=== PATIENT | male | born 1970 | race Caucasian/White ===

== ENCOUNTER 2017-11-05 13:35 | Inpatient (IN) | payer BC ==
[~2017-11-05] VITALS: Ht 182.9 cm; Wt 107.1 kg
[~2017-11-05 13:35] MED LIST: AMOXICILLIN875 MG PO
[2017-11-05 14:04] LABS: HEMATOCRIT 45.3 % (42.0-52.0); HEMOGLOBIN 15.4 g/dL (13.5-18.0); MEAN CELL VOLUME 89 fl (78-100); MEAN CORPUSCULAR HEMOGLOBIN 30 pg (27-31); MEAN CORPUSCULAR HGB CONC 34 g/dL (33-37); PLATELET COUNT 258 K/mm3 (130-400); RED CELL DISTRIBUTION WIDTH 13.9 % (11.5-14.5); WHITE BLOOD COUNT 18.7 K/mm3 (4.8-10.8)
[2017-11-05 14:20] LABS: ALBUMIN 4.4 g/dL (3.5-5.0); BUN/CREATININE RATIO 18.3 (6.0-26.0); CALCIUM 9.2 mg/dL (8.4-10.2); POTASSIUM 3.9 mmol/L (3.6-5.0); TOTAL BILIRUBIN 0.5 mg/dL (0.2-1.3); TOTAL PROTEIN 7.9 g/dL (6.3-8.2)
[2017-11-05 14:29] LABS: LYMPHOCYTE 13 % (20-51); MONOCYTE 3 % (3-10); NEUTROPHILS 84 % (42-75)
[2017-11-05 15:07] LABS: PH-URINE 5.5 (5.0 - 8.0); URINE APPEARANCE CLEAR; URINE BILIRUBIN NEGATIVE (NEGATIVE); URINE BLOOD NEGATIVE (NEGATIVE); URINE COLOR YELLOW; URINE GLUCOSE NEGATIVE (NEGATIVE); URINE KETONE 2+ (NEGATIVE); URINE LEUKOCYTE ESTERASE NEGATIVE (NEGATIVE); URINE NITRATE NEGATIVE (NEGATIVE); URINE PROTEIN(semi-quant) TRACE mg/dL (NEGATIVE); URINE UROBILINOGEN NORMAL (NORMAL); URINE WBC 0-1 /hpf (0-3)
[2017-11-05 15:08] LABS: URINE MUCUS PRESENT (NOT PRESENT)
[2017-11-05 15:56] VITALS: BP 132/82
--- NOTE | 2017-11-05 16:11 | NUR ---
Pt admitted to room 208. present. Pt and oriented to room and plan of care. Pt is alert and pleasant. Abd round and distended. Pt reports intermittent cramping. Hypoactive bowel sounds. Pt states he only had small BM this AM and loose BM yesterday. Pt agrees to plan of care and verbalizes understanding to alert staff when needing more pain medication.
[2017-11-05 16:12] VITALS: BP 132/82
[2017-11-05 18:31] VITALS: BP 134/69
--- NOTE | 2017-11-05 18:34 | NUR ---
Pt calls and reports that pain is getting worse and he didnt like the way the fentanyl made him feel. Pt also reports feeling flushed and temp was 100.3. Reported to Nella Razo PA-C. She in to assess pt and orders to follow.
--- NOTE | 2017-11-05 18:45 | NUR ---
Bedside shift report received from Juli MCFARLAND. Patient resting supine in bed with LR running at 200 ML/HR. Site patent. at bedside. States first dose of Morphine "took the edge off, but pain is still there". Wants to wait and see if pain decreases. Will call if he needs more. Waiting to go to CT, and awaiting labs.
--- NOTE | 2017-11-05 19:00 | NUR ---
To CT via W/C with tech.
--- NOTE | 2017-11-05 19:10 | NUR ---
Returns from CT. To BR ad-anabell. Voids 250 ML of clear yellow urine. Back to bed. Assessment completed. BS hypoactive all quads. States not passing gas. Tender with palpation across lower abdomen, especially LLQ. States would like more pain med now.
--- NOTE | 2017-11-05 19:24 | NUR ---
Morphine 2 Mg given SIVP. Patient states "its starting to work. Slightly drowsy. No nausea.
--- NOTE | 2017-11-05 19:45 | NUR ---
Lab in to draw lactate and CBC. Patient instructed to call for assist before getting up due to administration of Morphine. Verbalizes understanding. Instructed on need to keep track of I/O.
[2017-11-05 20:01] LABS: HEMATOCRIT 41.8 % (42.0-52.0); HEMOGLOBIN 14.2 g/dL (13.5-18.0); MEAN CELL VOLUME 90 fl (78-100); MEAN CORPUSCULAR HEMOGLOBIN 31 pg (27-31); MEAN CORPUSCULAR HGB CONC 34 g/dL (33-37); MEAN PLATELET VOLUME 10.1 fl (7.4-10.4); PLATELET COUNT 237 K/mm3 (130-400); RED BLOOD COUNT 4.66 M/mm3 (4.20-5.60); RED CELL DISTRIBUTION WIDTH 13.8 % (11.5-14.5)
--- NOTE | 2017-11-05 20:04 | NUR ---
Pain down to 2/10. Carolynn PA in to speak with patient and . Patient requests to have his temperature checked. 102.3 oral. Reported to Carolynn.
[2017-11-05 20:28] LABS: BAND 3 % (0-10); WHITE BLOOD COUNT 20.7 K/mm3 (4.8-10.8)
[2017-11-05 20:29] LABS: LYMPHOCYTE 3 % (20-51); MONOCYTE 1 % (3-10); NEUTROPHILS 93 % (42-75)
[2017-11-05 20:56] VITALS: BP 130/67
--- NOTE | 2017-11-05 21:01 | NUR ---
[facility] CONTACTED FOR TRANSFER TO [facility].
--- NOTE | 2017-11-05 21:13 | NUR ---
REPORT CALLED TO YUNIER AT [facility].
--- NOTE | 2017-11-05 21:19 | NUR ---
EMS here, report given. Patient calls and states pain has intensified to 9/10. Wrathing in pain. Order received for MSO4 2 MG IV now.
--- NOTE | 2017-11-05 21:23 | NUR ---
MSO4 2 MG given SIVP. EMS in to transport patient to cot. Family at bedside.
--- NOTE | 2017-11-05 21:30 | NUR ---
Patient leaves via EMS to [facility] RM [id number]. Pain slightly improved. Patient not wrathing or moaning out.
== END 2017-11-05 21:30 | disposition short-term general hospital (02) | DRG 390 ==
LOC: ED 13:35 → MED/SURG 15:45
PROVIDERS: Physician Assistant; ADMIT Physician Assistant
DX: K56.600 Partial intestinal obstruction, unspecified as to cause (principal)
CPT/HCPCS: J1885; J2270; J3010; J7030; J7120; Q9967

== ENCOUNTER → 2019-03-05 | Outpatient (CLI) | payer BC | LOC: RAD 14:02 | DX: S61.211A Laceration without foreign body of left index finger without damage to nail, initial encounter (principal) ==

== ENCOUNTER → 2020-06-25 | Outpatient (CLI) | payer BC ==
[2020-06-25 14:26] LABS: HEMATOCRIT 42.1 % (42.0-52.0); HEMOGLOBIN 13.9 g/dL (13.5-18.0); MEAN CELL VOLUME 90 fl (78-100); MEAN CORPUSCULAR HEMOGLOBIN 30 pg (27-31); MEAN CORPUSCULAR HGB CONC 33 g/dL (33-37); MEAN PLATELET VOLUME 9.8 fl (7.4-10.4); PLATELET COUNT 302 K/mm3 (130-400); WHITE BLOOD COUNT 13.4 K/mm3 (4.8-10.8)
[2020-06-25 14:33] LABS: URINE APPEARANCE CLEAR; URINE BILIRUBIN NEGATIVE (NEGATIVE); URINE BLOOD NEGATIVE (NEGATIVE); URINE COLOR YELLOW; URINE GLUCOSE NEGATIVE (NEGATIVE); URINE KETONE 2+ (NEGATIVE); URINE LEUKOCYTE ESTERASE NEGATIVE (NEGATIVE); URINE MUCUS PRESENT (NOT PRESENT); URINE NITRATE NEGATIVE (NEGATIVE); URINE PROTEIN(semi-quant) NEGATIVE (NEGATIVE); URINE UROBILINOGEN NORMAL (NORMAL)
[2020-06-25 15:16] LABS: ERYTHROCYTE SEDIMENTATION RATE 28 mm/hr (0-15)
[2020-06-25 15:26] LABS: BAND 1 % (0-10)
[2020-06-25 15:27] LABS: LYMPHOCYTE 17 % (20-51); MONOCYTE 9 % (3-10); NEUTROPHILS 71 % (42-75)
== END ==
LOC: RAD 13:55
PROVIDERS: Family Medicine
DX: K35.33 Acute appendicitis with perforation, localized peritonitis, and gangrene, with abscess (principal); Z98.890 Other specified postprocedural states
CPT/HCPCS: Q9967

== ENCOUNTER → 2020-07-11 | Outpatient (CLI) | payer BC | LOC: RAD 08:49 | DX: K42.9 Umbilical hernia without obstruction or gangrene (principal); K52.9 Noninfective gastroenteritis and colitis, unspecified | CPT/HCPCS: Q9967 ==

== ENCOUNTER → 2020-08-15 | Outpatient (CLI) | payer BC ==
[2020-08-15 16:48] LABS: HEMATOCRIT 45.8 % (42.0-52.0); HEMOGLOBIN 15.1 g/dL (13.5-18.0); MEAN CELL VOLUME 90 fl (78-100); MEAN CORPUSCULAR HEMOGLOBIN 30 pg (27-31); MEAN CORPUSCULAR HGB CONC 33 g/dL (33-37); MEAN PLATELET VOLUME 9.7 fl (7.4-10.4); PLATELET COUNT 317 K/mm3 (130-400); RED CELL DISTRIBUTION WIDTH 14.2 % (11.5-14.5); WHITE BLOOD COUNT 12.4 K/mm3 (4.8-10.8)
[2020-08-15 17:28] LABS: LYMPHOCYTE 12 % (20-51); MONOCYTE 6 % (3-10); NEUTROPHILS 82 % (42-75); TEAR DROP CELLS 1+
== END ==
LOC: RAD 16:31 → LAB 16:31
PROVIDERS: Family Medicine
DX: K59.9 Functional intestinal disorder, unspecified (principal)

== ENCOUNTER → 2021-01-02 | Outpatient (CLI) | payer BC | LOC: LAB 14:06 | DX: Z90.49 Acquired absence of other specified parts of digestive tract (principal) ==

== ENCOUNTER → 2021-06-01 | Outpatient (CLI) | payer BC | LOC: LAB 12:26 | DX: U07.1 COVID-19 (principal) ==

== ENCOUNTER → 2021-06-14 | Outpatient (CLI) | payer BC ==
[2021-06-14 22:33] LABS: CORTISOL RANDOM 24 ug/dL (3-20); TESTOSTERONE 194 ng/dL (221-716)
== END ==
LOC: LAB 08:11
DX: D3A.8 Other benign neuroendocrine tumors (principal)

== ENCOUNTER → 2021-06-15 | Outpatient (CLI) | payer BC ==
[2021-06-15 11:24] LABS: HEMATOCRIT 33.4 % (42.0-52.0); HEMOGLOBIN 11.2 g/dL (13.5-18.0); MEAN CELL VOLUME 83 fl (78-100); MEAN CORPUSCULAR HEMOGLOBIN 28 pg (27-31); MEAN CORPUSCULAR HGB CONC 34 g/dL (33-37); MEAN PLATELET VOLUME 10.2 fl (7.4-10.4); PLATELET COUNT 83 K/mm3 (130-400); RED BLOOD COUNT 4.02 M/mm3 (4.20-5.60); RED CELL DISTRIBUTION WIDTH 13.6 % (11.5-14.5)
[2021-06-15 11:34] LABS: ALBUMIN 3.5 g/dL (3.5-5.0); POTASSIUM 3.6 mmol/L (3.5-5.1)
[2021-06-15 11:35] LABS: CALCIUM 9.5 mg/dL (8.3-10.5)
[2021-06-15 11:37] LABS: TOTAL PROTEIN 7.2 g/dL (6.4-8.3)
[2021-06-15 11:56] LABS: EOS # 0.01 K/mm3 (0.04-0.40); EOS % 1.1 % (0.0-4.0); MONO # 0.29 K/mm3 (0.20-0.80); NEU # 0.05 K/mm3 (1.40-6.50)
== END ==
LOC: LAB 10:46
PROVIDERS: Nurse Practitioner Primary Care
DX: R50.9 Fever, unspecified (principal)